=== PATIENT | female | born 1940 | race Caucasian/White ===

== ENCOUNTER 2016-08-20 10:59 | Emergency (ER) | payer MEDICARE, OTHER ==
[2016-08-20 09:44] LABS: BASOPHILS 0.5 %; BASOPHILS ABSOLUTE 0.02 10/3/uL (0.0-0.16); EOSINOPHILS ABSOLUTE 0.04 10/3/uL (0.0-0.53); ER CBC TAT 0 Hrs 13 Mins; HEMATOCRIT 37.2 % (36.0-48.0); HEMOGLOBIN 11.9 g/dL (12.0-16.0); LYMPHOCYTES 32.5 %; LYMPHOCYTES ABSOLUTE 1.33 10/3/uL (0.67-4.30); MANUAL DIFF NO %; MEAN CORPUSCULAR VOLUME 87.5 fL (80-100); MEAN PLATELET VOLUME 9.5 fL (9.2-13.0); MONOCYTES 7.6 %; MONOCYTES ABSOLUTE 0.31 10/3/uL (0.21-1.20); NEUTROPHILS 58.4 %; NEUTROPHILS ABSOLUTE 2.39 10/3/uL (2.02-8.40); PARTIAL THROMBO TIME 27.2 SEC (22.5-37.2); PLATELET COUNT 167 10/3/uL (150-400); PROTIME (NOT ORD) 13.1 SEC (12.0-14.5); RBC DISTRIBUTION WIDTH 13.7 % (12.0-16.0); RED CELL COUNT 4.25 10/6/uL (4.0-5.6); WHITE BLOOD CELLS 4.1 10/3/uL (4.5-10.5)
[2016-08-20 09:52] LABS: BUN (BLOOD UREA NITROGEN) 16 MG/DL (6-23); CALCIUM, SERUM 9.8 MG/DL (8.5-10.4); CHEST PAIN PROFILE TAT 0 Hrs 21 Mins; CHLORIDE, SERUM 108 MMOL/L (96-112); CO2 (CARBON DIOXIDE) 30 MMOL/L (24-34); CREATININE 0.88 MG/DL (0.55-1.02); GFR AFRICAN AMERICAN 74 ML/MIN (>=60); GFR NON AFRICAN AMERICAN 64 ML/MIN (>=60); GLUCOSE, SERUM 106 MG/DL (60-99); POTASSIUM, SERUM 3.8 MMOL/L (3.5-5.3); SODIUM, SERUM 144 MMOL/L (135-148); TROPONIN I <0.02 NG/ML (<0.05)
[2016-08-20 10:09] LABS: BAND NEUTROPHILS 1 %; EOSINOPHILS 1 %; EOSINOPHILS ABSOLUTE (CALC) 0.04 10/3/uL (0.0-0.53); ER DIFF TAT 0 Hrs 38 Mins; LYMPHOCYTES 37 %; LYMPHOCYTES ABSOLUTE (CALC) 1.52 10/3/uL (0.67-4.30); MONOCYTES 6 %; MONOCYTES ABSOLUTE (CALC) 0.25 10/3/uL (0.21-1.20); PLATELET ESTIMATE ADQ (ADEQUATE); SEGMENTED NEUTROPHIL (0) 55 %; TOTAL NUCLEATED CELLS 100
[2016-08-20 10:10] LABS: RBC MORPHOLOGY NORM (NORMAL)
[2016-08-20 10:57] LABS: ASCORBIC ACID (UR NOT ORDER) NEG (NEG); BILIRUBIN, URINE NEGATIVE (NEG); ER URINALYSIS TAT 0 Hrs 24 Mins; KETONE, URINE TRACE MG/DL (NEG); LEUKOCYTE ESTERASE(NOT OR NEG (NEG); NITRITE (URINE) NEG (NEG); WBC (NOT ORDERED) (RFLEX) 4 (0-5)
== END 2016-08-20 12:55 | disposition home or self-care (01) ==
LOC: ER 10:59
PROVIDERS: Emergency Medicine
DX: R42 Dizziness and giddiness (principal)
CPT/HCPCS: 70551; 71010; 80048; 81001; 83735; 84484; 85025; 85610; 85730; 93005; 99284; A9270-GY